=== PATIENT | male | born 1950 | race Caucasian/White ===

== ENCOUNTER → 2016-11-06 | Outpatient (CLI) | payer OTHER ==
[~2016-11-06] MED LIST: ASPIRIN EC81 M1 PO; GLUCOPHAGE500 M1 PO; GLUCOTROL PO; HYDROCODONE-APA1 T55 PO; KEFLEX500 M1 PO; LISINOPRIL PO; LISINOPRIL10 MG PO; LOPRESSOR PO; LORTAB 5/500 TA1 TA1 PO; METFORMIN PO; MICRONASE5 M1 PO; PLAVIX PO; STOOL SOFTENER100 M1 PO; TOPROL XL PO; TYLENOL325 M1 PO; ZOCOR PO
--- NOTE | ~2016-11-06 | US37 ---
[facility] A Service of [facility] & [facility] RADIOLOGY TEXT RESULTS PATIENT: ROLANDO DIAZ LOCATION: CNIV : 50 UNIT #: [id number] AGE: [address]: Clary Sandoval MD SEX: M ORDER DR: [id number] [facility] [address] [place], [place] [address] [id number] O MR#: [id number] Acc #: [id number] NAME: ROLANDO DIAZ : 1950 SEX: M STUDY DATE/TIME: 11/06/2016 13:35 UNIT: CNIV ROOM: STUDY DESCRIPTION: US Carotid W/Doppler Bilateral Attending Physician: Carlos Sandoval M.D. Referring Physician: Carlos Sandoval M.D. Ordering Physician: Carlos Sandoval M.D. Primary Care Physician: Oz Marcelino M.D. MEDICAL IMAGING REPORT This report is preliminary unless electronic signature is present EXAM Bilateral carotid Doppler HISTORY Dizziness. FINDINGS The right common carotid, internal carotid and external carotid arteries are patent. There is diffuse ilccgtgb-om-dwahky plaque noted throughout, specifically at the carotid bulb and proximal internal carotid artery. Velocity of the common carotid artery is 63 cm/sec. Peak systolic velocity of the right proximal internal carotid artery is 167 cm/sec with an end-diastolic velocity of 26 cm/sec for a ICA:CCA ratio of 2.6. External carotid artery had a velocity of 277 cm/sec. The vertebral artery is visualized with antegrade flow. The left common carotid, internal carotid and external carotid arteries are patent. There is diffuse ojri-ip-lvutaudw plaque noted throughout. Velocity of the common carotid artery is 74 cm/sec. Peak systolic velocity left proximal internal carotid artery is 99 cm/sec with an end-diastolic velocity of 19 cm/sec for a ICA:CCA ratio of 1.4. External carotid artery had a velocity of 362 cm/sec. The vertebral artery is visualized with antegrade flow. IMPRESSION 1. 50-69% stenosis of the right internal carotid artery and less than 50% stenosis of the left internal carotid artery. 2. Elevated velocities of the right and left external carotid arteries consistent with stenosis. 3. Antegrade flow of the vertebral arteries. [facility]. [facility] A Service of [facility] & [facility] RADIOLOGY TEXT RESULTS PATIENT: ROLANDO DIAZ LOCATION: CN : 50 UNIT #: [id number] AGE: [address]: Clary Sandoval MD SEX: M ORDER DR: Dictated by... Georgette Anaya M.D. THIS IS AN ELECTRONICALLY VERIFIED REPORT Georgette Anaya M.D. at 11/12/2016 11:00 AM ROMELIA/heidi TD: 11/06/2016 17:09 JOB #: [id number] MEDICAL IMAGING REPORT Page 1 of 1 COPY
== END | disposition home or self-care (01) ==
LOC: CNIV 13:11
DX: R42 Dizziness and giddiness (principal); I65.23 Occlusion and stenosis of bilateral carotid arteries
CPT/HCPCS: 93880